=== PATIENT | female | born 1995 | race Caucasian/White ===

== ENCOUNTER 2021-03-27 16:26 | Emergency (ER) | payer OTHER, SELFPAY ==
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
[2021-03-27 16:34] VITALS: BP 153/85; PULSE 90; O2SAT 100
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
[2021-03-27 17:20] VITALS: BP 133/78; PULSE 87; RESP 20; TEMP 36.5; O2SAT 100; BMI 32.8
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
[2021-03-27 17:30] VITALS: BP 133/78; PULSE 83; RESP 20; TEMP 36.6; O2SAT 100
[2021-03-27] MEDS: Ibuprofen 800 MG TABLET PO (18:53)
== END 2021-03-27 18:53 | disposition home or self-care (01) ==
PROVIDERS: Emergency Provider Internal Medicine; PCP Internal Medicine
DX: S20.219A Contusion of unspecified front wall of thorax, initial encounter (principal); S16.1XXA Strain of muscle, fascia and tendon at neck level, initial encounter; S00.83XA Contusion of other part of head, initial encounter; V43.52XA Car driver injured in collision with other type car in traffic accident, initial encounter; Y93.89 Activity, other specified; Y92.414 Local residential or business street as the place of occurrence of the external cause; Y99.9 Unspecified external cause status
CPT/HCPCS: 70450; 71046; 72125; 93005; 99284